=== PATIENT | male | born 2000 | race Caucasian/White ===

== ENCOUNTER 2020-06-12 17:00 | Emergency (ER) | payer OTHER ==
[~2020-06-12] VITALS: Ht 157.5 cm; Wt 98.0 kg
[2020-06-12 17:04] VITALS: BP 134/86
--- NOTE | 2020-06-12 17:10 | NUR ---
Ambulated to bed 2
--- NOTE | 2020-06-12 17:20 | NUR ---
19/M FROM HOME WITH A C/O A DOG BITE TO THE RIGHT FOREARM. BLEEDING CONTROLLED.
--- NOTE | 2020-06-12 17:46 | NUR ---
Dr. Brownlee is evaluating the patient at bedside.
[2020-06-12] MEDS ORDERED: BACITRACIN OINT 500 UNITS/GM PKT TP ONE (17:55)
[2020-06-12] MEDS ORDERED: LIDOCAINE/EPI 1% 1:100000 20 ML VIAL INJ ONE (17:55)
[2020-06-12] MEDS ORDERED: IBUP-2213 PO (18:58)
[2020-06-12 19:05] VITALS: BP 134/86
== END 2020-06-12 19:05 | disposition home or self-care (01) ==
LOC: MED 17:00
DX: S51.851A Open bite of right forearm, initial encounter (principal); S51.811A Laceration without foreign body of right forearm, initial encounter; W54.0XXA Bitten by dog, initial encounter; Y93.89 Activity, other specified; Y92.89 Other specified places as the place of occurrence of the external cause; Y99.8 Other external cause status
CPT/HCPCS: 12001; 99282; J2001

== ENCOUNTER 2020-06-19 14:13 | Emergency (ER) | payer OTHER ==
[~2020-06-19] VITALS: Ht 160 cm; Wt 98.4 kg
[~2020-06-19 14:13] MED LIST: IBUP-2213 PO
[2020-06-19 14:16] VITALS: BP 154/99
--- NOTE | 2020-06-19 14:21 | NUR ---
Patient ambulated to bed 8
--- NOTE | 2020-06-19 14:21 | NUR ---
TRINA White is evaluating patient at bedside.
--- NOTE | 2020-06-19 14:28 | NUR ---
19 y/o M coming in from home for suture removal per discharge instructions. Patient denies any pain, 0/10. No swelling, drainage, or bleeding noted to right forearm suture. Bed locked in lowest position, side rails x 1, call light in reach. PMH/Meds/Sx: Denies NKHoda
[2020-06-19 14:41] VITALS: BP 154/99
--- NOTE | 2020-06-19 14:41 | NUR ---
Patient discharged with v/s stable. Written and verbal after care instructions given and explained. Patient verbalized understanding. Ambulatory with steady gait. All questions addressed prior to discharge. Advised to follow up with PMD.
== END 2020-06-19 14:41 | disposition home or self-care (01) ==
LOC: MED 14:13
DX: S61.411D Laceration without foreign body of right hand, subsequent encounter (principal); Z48.00 Encounter for change or removal of nonsurgical wound dressing; W54.0XXD Bitten by dog, subsequent encounter
CPT/HCPCS: 99281; 99283; 99291

== ENCOUNTER 2023-02-24 20:53 | Inpatient (IN) | payer OTHER ==
[~2023-02-24] VITALS: Ht 157.5 cm; Wt 96.2 kg
[2023-02-24 21:06] VITALS: BP 139/97; PULSE 120; RESP 20; TEMP 97; O2SAT 97
[2023-02-24 21:34] LABS: BASOPHILS # (AUTO) 0.1 K/uL (0.00-0.22); BASOPHILS % (AUTO) 0.4 % (0.0-2.0); HEMATOCRIT 51.7 % (36-52); HEMOGLOBIN 17.6 g/dL (12.0-18.0); LYMPHOCYTES # (AUTO) 2.2 K/uL (2.0-11.5); LYMPHOCYTES % (AUTO) 9.9 % (20.5-51.1); MEAN CORPUSCULAR HEMOGLOBIN 30 pg (27-31); MEAN CORPUSCULAR HGB CONC 34 g/dL (33-37); MEAN CORPUSCULAR VOLUME 86.6 fL (80-94); MONOCYTES # (AUTO) 0.9 K/uL (0.8-1.0); MONOCYTES % (AUTO) 4.2 % (1.7-9.3); NEUTROPHILS # (AUTO) 18.9 K/uL (1.8-7.7); NEUTROPHILS % (AUTO) 85.5 % (42.2-75.2); PLATELET COUNT (AUTO) 515 K/uL (140-450); RED BLOOD CELL COUNT(AUTO) 5.97 MIL/uL (4.20-6.10); RED CELL DISTRIBUTION WIDTH 13.4 % (11.6-13.7); WHITE BLOOD COUNT (AUTO) 22.1 K/uL (4.8-10.8)
[2023-02-24 21:48] LABS: ALBUMIN 4.2 g/dL (3.4-5.0); CREATININE 1.3 mg/dL (0.6-1.3); POTASSIUM 3.8 mmol/L (3.5-5.1); TOTAL BILIRUBIN 0.7 mg/dL (0.0-1.0); TOTAL PROTEIN, SERUM 9.2 g/dL (6.4-8.2)
[2023-02-24 21:49] LABS: ANION GAP 35.2 (8-16)
[2023-02-24] MEDS ORDERED: NACL 0.9% 1,000 ML IV ONE ×2 (21:50→22:20)
[2023-02-24 21:51] LABS: CARBON DIOXIDE 3.6 mmol/L (21-32)
[2023-02-24] MEDS ORDERED: KCL 20 MEQ IN 100 mL PREMIX 100 ML IV ONE (22:20)
[2023-02-24 22:23] LABS: FLU A ANTIGEN negative (NEGATIVE); FLU B ANTIGEN NEGATIVE (NEGATIVE)
[2023-02-24] MEDS ORDERED: KETOROLAC 30 MG/ML VIAL IVP ONE (22:45)
[2023-02-24] MEDS ORDERED: INSULIN REGULAR, HUMAN 100 UNIT in NACL 0.9% 100 ML IV ONE ×2 (23:45)
[2023-02-24] MEDS ORDERED: cefTRIAXone 1,000 MG VIAL ONE (23:55)
[2023-02-24 23:57] LABS: APPEARANCE,URINE CLEAR (CLEAR); BILIRUBIN,URINE 1+ (NEGATIVE); BLOOD, URINE 1+ (NEGATIVE); COLOR,URINE YELLOW (YELLOW); LEUKOCYTE ESTERASE ,URINE NEGATIVE (NEGATIVE); NITRITE, URINE NEGATIVE (NEGATIVE); PROTEIN,URINE 3+ (NEGATIVE); UGLUCOSE 2+ (NEGATIVE); UROBILINOGEN,URINE 0.2 EU/dL (0.2 - 1)
[2023-02-25 00:09] LABS: AMPHETAMINE, URINE NEGATIVE ng/ml (NEG <=1000); BARBITURATE, URINE NEGATIVE ng/ml (NEG <=200); BENZODIAZEPINE, URINE NEGATIVE ng/mL (NEG <=200); CANNABINOID, URINE NEGATIVE ng/mL (NEG <=50); COCAINE, URINE NEGATIVE ng/mL (NEG <=300); ICTOTEST POSITIVE (NEGATIVE); OPIATE, URINE NEGATIVE ng/mL (NEG <=2000); PHENCYCLIDINE SCREEN,URINE NEGATIVE ng/mL (NEG <=25)
[2023-02-25 00:10] LABS: BACTERIA,URINE 10-30 (MOD) /HPF (None Seen); MUCUS,URINE 1+ /LPF (None Seen); RBC,URINE 0-5 /HPF (0-5); SQUAMOUS EPITHELIAL CELL,UR 0-3 (FEW) /LPF (0-3 (FEW)); WBC,URINE 0-5 /HPF (0-5)
[2023-02-25] MEDS ORDERED: HYDROcodone/APAP 5/325 MG 1 TAB TAB PO PRN (00:30)
[2023-02-25] MEDS ORDERED: ONDANSETRON 4 MG/2 ML VIAL IVP PRN (00:30)
[2023-02-25] MEDS ORDERED: ACETAMINOPHEN 325 MG TAB PO PRN (00:30)
[2023-02-25] MEDS ORDERED: DEXTROSE 50% 50 ML SYR IVP PRN (00:30)
[2023-02-25 01:27] LABS: BLOOD GAS BASE EXCESS -23.7 mmol/L (-2.0-2.0); BLOOD GAS HCO3 4.4 mmol/L (22-26); BLOOD GAS PCO2 15.6 mmHg (35-45); BLOOD GAS PH 7.065 (7.35-7.45); BLOOD GAS PO2 121.3 mmHg (75-100)
[2023-02-25] MEDS: BLOOD GLUCOSE MONITORING 1 DEV DEV FS SCH ×23 (01:30→23:30)
[2023-02-25] MEDS: NACL 0.9% 1,000 ML IV SCH ×2 (02:00→16:00)
[2023-02-25 04:28] LABS: ANION GAP 30.5 (8-16); CALCIUM 8.8 mg/dL (8.5-10.1); CREATININE 1.2 mg/dL (0.6-1.3); POTASSIUM 4.4 mmol/L (3.5-5.1)
[2023-02-25 04:29] LABS: PHOSPHORUS 2.7 mg/dL (2.5-4.9)
[2023-02-25 04:30] LABS: CARBON DIOXIDE 5.9 mmol/L (21-32)
[2023-02-25 04:34] LABS: FREE T4 (FREE THYROXINE) 0.91 ng/dL (0.76-1.46)
[2023-02-25 05:04] LABS: THYROID STIMULATING HORMONE 0.91 uIU/mL (0.34-3.74)
[2023-02-25 08:13] LABS: ANION GAP 23.1 (8-16); CALCIUM 8.9 mg/dL (8.5-10.1); CARBON DIOXIDE 10.6 mmol/L (21-32); CREATININE 1.2 mg/dL (0.6-1.3); POTASSIUM 3.7 mmol/L (3.5-5.1)
[2023-02-25 08:56] LABS: MAGNESIUM 1.8 mg/dL (1.8-2.4); PHOSPHORUS 1.4 mg/dL (2.5-4.9)
[2023-02-25] MEDS ORDERED: MAG SULF 2000 MG/WATER PREMIX 50 ML IV SCH (12:00)
[2023-02-25 12:47] LABS: ANION GAP 19.6 (8-16); CALCIUM 8.5 mg/dL (8.5-10.1); CARBON DIOXIDE 11.7 mmol/L (21-32); POTASSIUM 3.3 mmol/L (3.5-5.1)
[2023-02-25 12:55] LABS: LACTIC ACID 0.7 mmol/L (0.4-2.0)
[2023-02-25] MEDS ORDERED: POTASSIUM PHOSPHATE 15 MM in NACL 0.9% 250 ML IV SCH (13:00)
[2023-02-25 13:07] LABS: MAGNESIUM 1.7 mg/dL (1.8-2.4); PHOSPHORUS 1.5 mg/dL (2.5-4.9)
[2023-02-25] MEDS ORDERED: IPRATROPIUM 0.02% 0.5 MG/2.5 ML NEBU INH PRN (15:55)
[2023-02-25] MEDS ORDERED: CLONIDINE HYDROCHLORIDE 0.1 MG TAB PO PRN (15:55)
[2023-02-25] MEDS ORDERED: MAGNESIUM OXIDE 400 MG TAB PO PRN (15:55)
[2023-02-25] MEDS ORDERED: DOCUSATE SODIUM 250 MG GELCAP PO PRN (15:55)
[2023-02-25] MEDS ORDERED: ALBUTEROL 0.083% 2.5 MG/3 ML NEBU INH PRN (15:55)
[2023-02-25] MEDS ORDERED: bisacodyL 10 MG SUPP RC PRN (15:55)
[2023-02-25] MEDS ORDERED: SODIUM PHOSPHATE 118 ML ENEM RC PRN (15:55)
[2023-02-25 15:58] LABS: CALCIUM 8.6 mg/dL (8.5-10.1); CARBON DIOXIDE 11.3 mmol/L (21-32); POTASSIUM 3.3 mmol/L (3.5-5.1)
[2023-02-25 16:06] LABS: MAGNESIUM 2.2 mg/dL (1.8-2.4); PHOSPHORUS 1.2 mg/dL (2.5-4.9)
[2023-02-25] MEDS: DEXT 5% / NACL 0.45% 1,000 ML IV SCH (17:53)
[2023-02-25 18:50] VITALS: PULSE 122; O2SAT 100
[2023-02-25 20:00] VITALS: BP 104/70; PULSE 101; PULSE 120; RESP 17; TEMP 98.5; O2SAT 100
[2023-02-25 20:34] VITALS: PULSE 112; RESP 16; O2SAT 100
[2023-02-25] MEDS: FAMOTIDINE 20 MG/2 ML VIAL IV SCH (20:56)
[2023-02-25 21:00] VITALS: BP 118/84; PULSE 107; RESP 15; O2SAT 99
[2023-02-25] MEDS: INSULIN REGULAR, HUMAN 100 UNIT in NACL 0.9% 100 ML IV SCH ×2 (21:19)
[2023-02-25 22:00] VITALS: BP 122/75; PULSE 101; RESP 16; O2SAT 99
[2023-02-25 23:00] VITALS: BP 101/65; PULSE 103; RESP 15; O2SAT 99
[2023-02-25] MEDS ORDERED: cefTRIAXone 1,000 MG VIAL ONE (23:56)
[2023-02-26] VITALS (24 sets, daily range): BP systolic 114–150; BP diastolic 66–89; PULSE 75–120; RESP 12–23; TEMP 98–98.8; O2SAT 97–100
[2023-02-26] MEDS: NACL 0.9% 1,000 ML IV SCH ×8 (00:18→19:30)
[2023-02-26] MEDS: DEXT 5% / NACL 0.45% 1,000 ML IV SCH ×3 (00:19→19:30)
[2023-02-26] MEDS: BLOOD GLUCOSE MONITORING 1 DEV DEV FS SCH ×24 (00:30→23:30)
[2023-02-26 00:49] LABS: BASOPHILS % (AUTO) 0.5 % (0.0-2.0); EOSINOPHILS # (AUTO) 0.1 K/uL (0-0.4); EOSINOPHILS % (AUTO) 0.6 % (0.0-4.0); HEMATOCRIT 42.5 % (36-52); HEMOGLOBIN 14.7 g/dL (12.0-18.0); LYMPHOCYTES # (AUTO) 2.1 K/uL (2.0-11.5); LYMPHOCYTES % (AUTO) 23.2 % (20.5-51.1); MEAN CORPUSCULAR HEMOGLOBIN 30 pg (27-31); MEAN CORPUSCULAR HGB CONC 35 g/dL (33-37); MEAN CORPUSCULAR VOLUME 86.1 fL (80-94); MONOCYTES # (AUTO) 0.9 K/uL (0.8-1.0); MONOCYTES % (AUTO) 9.8 % (1.7-9.3); NEUTROPHILS % (AUTO) 65.9 % (42.2-75.2); PLATELET COUNT (AUTO) 283 K/uL (140-450); RED BLOOD CELL COUNT(AUTO) 4.94 MIL/uL (4.20-6.10); RED CELL DISTRIBUTION WIDTH 13.7 % (11.6-13.7); WHITE BLOOD COUNT (AUTO) 9.1 K/uL (4.8-10.8)
[2023-02-26 01:06] LABS: BLOOD GAS PCO2 27.3 mmHg (35-45); BLOOD GAS PH 7.259 (7.35-7.45); BLOOD GAS PO2 52.4 mmHg (75-100)
[2023-02-26 01:07] LABS: BLOOD GAS BASE EXCESS -13.4 mmol/L (-2.0-2.0); BLOOD GAS HCO3 11.9 mmol/L (22-26); BLOOD GAS O2 SAT% 89.6 % (92.0-98.5)
[2023-02-26 02:11] LABS: ANION GAP 16.5 (8-16); CALCIUM 8.4 mg/dL (8.5-10.1); CARBON DIOXIDE 15.6 mmol/L (21-32); POTASSIUM 3.1 mmol/L (3.5-5.1)
[2023-02-26] MEDS: POTASSIUM CHLORIDE 10 MEQ TABER PO PRN ×2 (02:57→06:05)
[2023-02-26 04:28] LABS: ANION GAP 19.6 (8-16); CALCIUM 8.5 mg/dL (8.5-10.1); CARBON DIOXIDE 12.6 mmol/L (21-32)
[2023-02-26 04:29] LABS: POTASSIUM 2.2 mmol/L (3.5-5.1)
[2023-02-26] MEDS ORDERED: KCL 20 MEQ IN 100 mL PREMIX 100 ML IV ONE (05:00)
[2023-02-26 07:52] LABS: ANION GAP 23.4 (8-16); CALCIUM 8.6 mg/dL (8.5-10.1); CARBON DIOXIDE 10.5 mmol/L (21-32); CREATININE 1.1 mg/dL (0.6-1.3)
[2023-02-26 07:54] LABS: POTASSIUM 2.9 mmol/L (3.5-5.1)
[2023-02-26] MEDS ORDERED: hydrALAZINE 25 MG TAB PO PRN (09:00)
[2023-02-26 09:06] LABS: T4 (THYROXINE) 7.5 ug/dL (4.5-12.0)
[2023-02-26] MEDS: FAMOTIDINE 20 MG/2 ML VIAL IV SCH ×2 (09:10→20:31)
[2023-02-26] MEDS: INSULIN REGULAR, HUMAN 100 UNIT in NACL 0.9% 100 ML IV SCH ×2 (11:49)
[2023-02-26 12:45] LABS: ANION GAP 18.9 (8-16); CALCIUM 8.5 mg/dL (8.5-10.1); CARBON DIOXIDE 14.6 mmol/L (21-32); CREATININE 0.9 mg/dL (0.6-1.3); POTASSIUM 3.5 mmol/L (3.5-5.1)
[2023-02-26 16:31] LABS: ANION GAP 17.6 (8-16); CALCIUM 8.6 mg/dL (8.5-10.1); CARBON DIOXIDE 17.8 mmol/L (21-32); CREATININE 0.9 mg/dL (0.6-1.3)
[2023-02-26 16:33] LABS: POTASSIUM 2.4 mmol/L (3.5-5.1)
[2023-02-26] MEDS ORDERED: KCL 20 MEQ IN 100 mL PREMIX 200 ML IV SCH ×2 (18:25→23:30)
[2023-02-26 20:59] LABS: ANION GAP 14.9 (8-16); CALCIUM 7.9 mg/dL (8.5-10.1); CARBON DIOXIDE 20.4 mmol/L (21-32); CREATININE 0.8 mg/dL (0.6-1.3)
[2023-02-26 21:02] LABS: POTASSIUM 2.3 mmol/L (3.5-5.1)
[2023-02-27] VITALS (24 sets, daily range): BP systolic 118–175; BP diastolic 58–107; PULSE 77–102; RESP 10–23; TEMP 98.1–98.7; O2SAT 95–100
[2023-02-27] MEDS: BLOOD GLUCOSE MONITORING 1 DEV DEV FS SCH ×24 (00:30→23:40)
[2023-02-27 00:59] LABS: ANION GAP 14.7 (8-16); CARBON DIOXIDE 20.7 mmol/L (21-32); CREATININE 0.8 mg/dL (0.6-1.3)
[2023-02-27 01:01] LABS: POTASSIUM 2.4 mmol/L (3.5-5.1)
[2023-02-27 01:02] LABS: MAGNESIUM 1.4 mg/dL (1.8-2.4); PHOSPHORUS 1.5 mg/dL (2.5-4.9)
[2023-02-27] MEDS: DEXT 5% / NACL 0.45% 1,000 ML IV SCH ×7 (01:18→21:36)
[2023-02-27] MEDS: NACL 0.9% 1,000 ML IV SCH ×6 (02:30→20:11)
[2023-02-27] MEDS: INSULIN REGULAR, HUMAN 100 UNIT in NACL 0.9% 100 ML IV SCH ×4 (04:38→16:49)
[2023-02-27 05:58] LABS: ANION GAP 18.3 (8-16); CALCIUM 7.8 mg/dL (8.5-10.1); CARBON DIOXIDE 18.3 mmol/L (21-32); CREATININE 0.8 mg/dL (0.6-1.3)
[2023-02-27 06:28] LABS: BASOPHILS % (AUTO) 0.3 % (0.0-2.0); EOSINOPHILS # (AUTO) 0.1 K/uL (0-0.4); EOSINOPHILS % (AUTO) 1.2 % (0.0-4.0); HEMATOCRIT 36.2 % (36-52); HEMOGLOBIN 12.7 g/dL (12.0-18.0); LYMPHOCYTES # (AUTO) 2.3 K/uL (2.0-11.5); LYMPHOCYTES % (AUTO) 31.2 % (20.5-51.1); MEAN CORPUSCULAR HEMOGLOBIN 30 pg (27-31); MEAN CORPUSCULAR HGB CONC 35 g/dL (33-37); MONOCYTES # (AUTO) 0.7 K/uL (0.8-1.0); MONOCYTES % (AUTO) 9.7 % (1.7-9.3); NEUTROPHILS # (AUTO) 4.2 K/uL (1.8-7.7); NEUTROPHILS % (AUTO) 57.6 % (42.2-75.2); PLATELET COUNT (AUTO) 229 K/uL (140-450); RED CELL DISTRIBUTION WIDTH 13.3 % (11.6-13.7); WHITE BLOOD COUNT (AUTO) 7.3 K/uL (4.8-10.8)
[2023-02-27] MEDS ORDERED: KCL 20 MEQ IN 100 mL PREMIX 200 ML IV SCH (07:30)
[2023-02-27] MEDS: POTASSIUM CHLORIDE 10 MEQ TABER PO PRN (08:03)
[2023-02-27] MEDS: FAMOTIDINE 20 MG/2 ML VIAL IV SCH ×2 (08:28→20:11)
[2023-02-27] MEDS: MAG SULF 2000 MG/WATER PREMIX 50 ML IV PRN (10:16)
[2023-02-27 10:30] LABS: HEMOGLOBIN A1C 10.2 % (4.8-5.6)
[2023-02-27 10:51] LABS: POTASSIUM 2.6 mmol/L (3.5-5.1)
[2023-02-27] MEDS ORDERED: MAG SULF 2000 MG/WATER PREMIX 50 ML IV SCH (11:00)
[2023-02-27] MEDS: POTASSIUM CHLORIDE 10 MEQ TABER PO SCH ×2 (11:00→12:53)
[2023-02-27 11:20] LABS: ANION GAP 12.9 (8-16); CALCIUM 8.1 mg/dL (8.5-10.1); CARBON DIOXIDE 24.4 mmol/L (21-32); CREATININE 0.7 mg/dL (0.6-1.3); POTASSIUM 3.3 mmol/L (3.5-5.1)
[2023-02-27 13:07] LABS: ANION GAP 15.9 (8-16); CALCIUM 8.4 mg/dL (8.5-10.1); CARBON DIOXIDE 22.9 mmol/L (21-32); CREATININE 0.7 mg/dL (0.6-1.3); POTASSIUM 3.8 mmol/L (3.5-5.1)
[2023-02-27 13:13] LABS: LACTIC ACID 1.1 mmol/L (0.4-2.0)
[2023-02-27 16:00] LABS: ANION GAP 14.4 (8-16); CALCIUM 8.2 mg/dL (8.5-10.1); CARBON DIOXIDE 23.8 mmol/L (21-32); CREATININE 0.7 mg/dL (0.6-1.3); POTASSIUM 3.2 mmol/L (3.5-5.1)
[2023-02-27] MEDS ORDERED: POTASSIUM CHLORIDE 10 MEQ TABER PO SCH (16:10)
[2023-02-27 20:47] LABS: ANION GAP 14.8 (8-16); CALCIUM 8.8 mg/dL (8.5-10.1); CARBON DIOXIDE 23.9 mmol/L (21-32); CREATININE 0.7 mg/dL (0.6-1.3); POTASSIUM 3.7 mmol/L (3.5-5.1)
[2023-02-27] MEDS ORDERED: INSULIN REGULAR, HUMAN 100 UNIT in NACL 0.9% 100 ML IV SCH ×2 (22:05)
[2023-02-28] VITALS (24 sets, daily range): BP systolic 99–150; BP diastolic 57–103; PULSE 68–103; RESP 10–25; TEMP 96.6–98.4; O2SAT 98–100
[2023-02-28 00:35] LABS: ANION GAP 14.2 (8-16); CALCIUM 8.1 mg/dL (8.5-10.1); CARBON DIOXIDE 25.1 mmol/L (21-32); CREATININE 0.7 mg/dL (0.6-1.3); POTASSIUM 3.3 mmol/L (3.5-5.1)
[2023-02-28] MEDS: BLOOD GLUCOSE MONITORING 1 DEV DEV FS SCH ×14 (00:38→20:07)
[2023-02-28] MEDS: POTASSIUM CHLORIDE 10 MEQ TABER PO PRN (01:32)
[2023-02-28] MEDS: MAG SULF 2000 MG/WATER PREMIX 50 ML IV PRN (01:33)
[2023-02-28] MEDS: NACL 0.9% 1,000 ML IV SCH ×4 (03:30→15:56)
[2023-02-28 04:31] LABS: ANION GAP 13.5 (8-16); CALCIUM 8.4 mg/dL (8.5-10.1); CARBON DIOXIDE 26.3 mmol/L (21-32); CREATININE 0.7 mg/dL (0.6-1.3); POTASSIUM 3.8 mmol/L (3.5-5.1); TOTAL BILIRUBIN 0.9 mg/dL (0.0-1.0); TOTAL PROTEIN, SERUM 6.5 g/dL (6.4-8.2)
[2023-02-28 05:40] LABS: BASOPHILS % (AUTO) 0.4 % (0.0-2.0); EOSINOPHILS # (AUTO) 0.1 K/uL (0-0.4); EOSINOPHILS % (AUTO) 1.4 % (0.0-4.0); HEMATOCRIT 37.9 % (36-52); HEMOGLOBIN 13.1 g/dL (12.0-18.0); LYMPHOCYTES # (AUTO) 2.4 K/uL (2.0-11.5); MEAN CORPUSCULAR HEMOGLOBIN 29 pg (27-31); MEAN CORPUSCULAR HGB CONC 35 g/dL (33-37); MEAN CORPUSCULAR VOLUME 84.9 fL (80-94); MONOCYTES # (AUTO) 0.6 K/uL (0.8-1.0); MONOCYTES % (AUTO) 8.2 % (1.7-9.3); NEUTROPHILS # (AUTO) 4.6 K/uL (1.8-7.7); PLATELET COUNT (AUTO) 261 K/uL (140-450); RED BLOOD CELL COUNT(AUTO) 4.46 MIL/uL (4.20-6.10); RED CELL DISTRIBUTION WIDTH 13.2 % (11.6-13.7); WHITE BLOOD COUNT (AUTO) 7.9 K/uL (4.8-10.8)
[2023-02-28] MEDS: DEXT 5% / NACL 0.45% 1,000 ML IV SCH ×2 (07:37→08:23)
[2023-02-28] MEDS: FAMOTIDINE 20 MG/2 ML VIAL IV SCH ×2 (08:06→20:07)
[2023-02-28 08:50] LABS: ANION GAP 13.3 (8-16); CALCIUM 8.4 mg/dL (8.5-10.1); CARBON DIOXIDE 25.3 mmol/L (21-32); CREATININE 0.8 mg/dL (0.6-1.3); POTASSIUM 3.6 mmol/L (3.5-5.1)
[2023-02-28 10:08] LABS: BLOOD GAS BASE EXCESS 0.5 mmol/L (-2.0-2.0); BLOOD GAS HCO3 23.9 mmol/L (22-26); BLOOD GAS PCO2 34.6 mmHg (35-45); BLOOD GAS PH 7.457 (7.35-7.45); BLOOD GAS PO2 90.3 mmHg (75-100)
[2023-02-28 10:09] LABS: BLOOD GAS O2 SAT% 97.1 % (92.0-98.5)
[2023-02-28] MEDS ORDERED: INSULIN LANTUS 100 UNITS/ML 10 ML VIAL SUBQ SCH (12:00)
[2023-02-28 17:34] LABS: ANION GAP 11.3 (8-16); CALCIUM 8.3 mg/dL (8.5-10.1); CARBON DIOXIDE 27.7 mmol/L (21-32); CREATININE 0.7 mg/dL (0.6-1.3)
[2023-02-28] MEDS: INSULIN LISPRO SLIDING SCALE 100 UNITS/ML VIAL SUBQ PRN (20:10)
[2023-03-01] VITALS (13 sets, daily range): BP systolic 119–147; BP diastolic 51–111; PULSE 76–96; RESP 12–20; TEMP 97.7–98.7; O2SAT 98–100
[2023-03-01 05:04] LABS: BASOPHILS % (AUTO) 0.5 % (0.0-2.0); CALCIUM 8.4 mg/dL (8.5-10.1); CARBON DIOXIDE 24.5 mmol/L (21-32); CREATININE 0.8 mg/dL (0.6-1.3); EOSINOPHILS # (AUTO) 0.1 K/uL (0-0.4); EOSINOPHILS % (AUTO) 2.3 % (0.0-4.0); HEMATOCRIT 36.9 % (36-52); HEMOGLOBIN 12.9 g/dL (12.0-18.0); LYMPHOCYTES # (AUTO) 2.3 K/uL (2.0-11.5); LYMPHOCYTES % (AUTO) 36.8 % (20.5-51.1); MEAN CORPUSCULAR HEMOGLOBIN 29 pg (27-31); MEAN CORPUSCULAR HGB CONC 35 g/dL (33-37); MEAN CORPUSCULAR VOLUME 84.3 fL (80-94); MONOCYTES # (AUTO) 0.5 K/uL (0.8-1.0); MONOCYTES % (AUTO) 8.7 % (1.7-9.3); NEUTROPHILS # (AUTO) 3.2 K/uL (1.8-7.7); NEUTROPHILS % (AUTO) 51.7 % (42.2-75.2); PLATELET COUNT (AUTO) 267 K/uL (140-450); POTASSIUM 3.5 mmol/L (3.5-5.1); RED BLOOD CELL COUNT(AUTO) 4.38 MIL/uL (4.20-6.10); RED CELL DISTRIBUTION WIDTH 13.1 % (11.6-13.7); WHITE BLOOD COUNT (AUTO) 6.2 K/uL (4.8-10.8)
[2023-03-01 05:08] LABS: MAGNESIUM 1.7 mg/dL (1.8-2.4); PHOSPHORUS 3.6 mg/dL (2.5-4.9)
[2023-03-01] MEDS: MAG SULF 2000 MG/WATER PREMIX 50 ML IV PRN (05:58)
[2023-03-01] MEDS: FAMOTIDINE 20 MG/2 ML VIAL IV SCH ×2 (07:31→21:52)
[2023-03-01] MEDS: INSULIN LISPRO SLIDING SCALE 100 UNITS/ML VIAL SUBQ PRN ×4 (07:34→22:01)
[2023-03-01] MEDS: BLOOD GLUCOSE MONITORING 1 DEV DEV FS SCH ×4 (07:38→21:57)
[2023-03-01] MEDS: INSULIN LANTUS 100 UNITS/ML 10 ML VIAL SUBQ SCH (14:20)
[2023-03-02] VITALS: BP 160/77; PULSE 76; RESP 13; TEMP 97.5; O2SAT 98
[2023-03-02 04:00] VITALS: BP 127/78; PULSE 72; PULSE 78; RESP 18; TEMP 98.3; O2SAT 99
[2023-03-02 06:17] LABS: ANION GAP 12.7 (8-16); CALCIUM 8.9 mg/dL (8.5-10.1); CARBON DIOXIDE 28.8 mmol/L (21-32); CREATININE 0.7 mg/dL (0.6-1.3); POTASSIUM 3.5 mmol/L (3.5-5.1)
[2023-03-02 06:26] LABS: MAGNESIUM 1.9 mg/dL (1.8-2.4); PHOSPHORUS 3.8 mg/dL (2.5-4.9)
[2023-03-02 06:28] LABS: BASOPHILS % (AUTO) 0.5 % (0.0-2.0); EOSINOPHILS # (AUTO) 0.2 K/uL (0-0.4); EOSINOPHILS % (AUTO) 2.7 % (0.0-4.0); HEMOGLOBIN 12.4 g/dL (12.0-18.0); LYMPHOCYTES # (AUTO) 2.3 K/uL (2.0-11.5); MEAN CORPUSCULAR HEMOGLOBIN 30 pg (27-31); MEAN CORPUSCULAR HGB CONC 35 g/dL (33-37); MEAN CORPUSCULAR VOLUME 85.3 fL (80-94); MONOCYTES # (AUTO) 0.5 K/uL (0.8-1.0); NEUTROPHILS # (AUTO) 3.7 K/uL (1.8-7.7); NEUTROPHILS % (AUTO) 54.8 % (42.2-75.2); PLATELET COUNT (AUTO) 247 K/uL (140-450); RED BLOOD CELL COUNT(AUTO) 4.11 MIL/uL (4.20-6.10); RED CELL DISTRIBUTION WIDTH 12.6 % (11.6-13.7); WHITE BLOOD COUNT (AUTO) 6.8 K/uL (4.8-10.8)
[2023-03-02 08:00] VITALS: BP 119/59; PULSE 67; PULSE 70; RESP 10; TEMP 97.5; O2SAT 98
[2023-03-02] MEDS: BLOOD GLUCOSE MONITORING 1 DEV DEV FS SCH ×2 (08:03→12:24)
[2023-03-02] MEDS: INSULIN LISPRO SLIDING SCALE 100 UNITS/ML VIAL SUBQ PRN ×2 (08:09→12:25)
[2023-03-02] MEDS: INSULIN LANTUS 100 UNITS/ML 10 ML VIAL SUBQ SCH (09:23)
[2023-03-02] MEDS: FAMOTIDINE 20 MG/2 ML VIAL IV SCH (09:24)
[2023-03-02 12:00] VITALS: BP 118/58; PULSE 64; PULSE 86; RESP 17; TEMP 97.7; O2SAT 99
[2023-03-02] MEDS ORDERED: BLOO-224 INH (14:45)
[2023-03-02] MEDS ORDERED: INSU100V19 SQ (14:45)
[2023-03-02 14:51] VITALS: BP 130/67; PULSE 81; RESP 22; TEMP 97.8
[2023-03-02 16:00] VITALS: BP 133/31; PULSE 64; PULSE 70; RESP 17; TEMP 97.7; O2SAT 99
== END 2023-03-02 16:02 | disposition home or self-care (01) | DRG 420 ==
LOC: MED 20:53 → MMU 02-25 00:27 → MIC 02-25 17:32
PROVIDERS: ADMIT Hospitalist; ATTEND Hospitalist
DX: E11.10 Type 2 diabetes mellitus with ketoacidosis without coma (principal); R65.10 Systemic inflammatory response syndrome (SIRS) of non-infectious origin without acute organ dysfunction; E87.1 Hypo-osmolality and hyponatremia; E11.65 Type 2 diabetes mellitus with hyperglycemia; E66.9 Obesity, unspecified; E86.9 Volume depletion, unspecified; E87.6 Hypokalemia; E83.42 Hypomagnesemia; Z20.822 Contact with and (suspected) exposure to COVID-19; Z68.38 Body mass index [BMI] 38.0-38.9, adult
CPT/HCPCS: 36415; 36600; 71045; 80048; 80053; 80305; 81001; 82009; 82803; 82948; 83036; 83605; 83690; 83735; 84100; 84436; 84439; 84443; 84479; 85025; 87040; 87081; 96365; 96366; 96367; 96375; 99291; J0696; J1644; J1815; J1885; J3475; J3480; J3490; J7030; J7060; Q0092